=== PATIENT | female | born 1955 | race Two or more races ===

== ENCOUNTER → 2016-05-12 | Outpatient (CLI) | payer OTHER ==
--- NOTE | ~2016-05-12 | MY11 ---
[facility] A Service of [facility] RADIOLOGY TEXT RESULTS PATIENT: KASHIF BECERRA LOCATION: [facility] : 59 UNIT #: [id number] AGE: [address]: KYE VASQUEZ APRN SEX: F ORDER DR: [id number] [facility] [address] [place] [place], [place] [address] [id number] O MR#: [id number] Acc #: [id number] NAME: KASHIF BECERRA : 1955 SEX: F STUDY DATE/TIME: 05/12/2016 13:36 UNIT: [facility] ROOM: STUDY DESCRIPTION: MY Mammogram Screening Dig Piotr Attending Physician: Alberto Vasquez M.D. Referring Physician: Alberto Vasquez M.D. Ordering Physician: Alberto Vasquez M.D. Primary Care Physician: Ronnie Perdue M.D. MEDICAL IMAGING REPORT This report is preliminary unless electronic signature is present EXAM Bilateral digital screening mammogram with CAD. COMPARISON STUDIES None; baseline exam. HISTORY Breast cancer screening. A 61-year-old asymptomatic female. No personal or family history of breast cancer. FINDINGS There are scattered fibroglandular densities. There are bilateral sternalis muscles, a normal anatomic variant. There are no suspicious findings in either breast. IMPRESSION No mammographic evidence of malignancy. Continued annual screening mammography and clinical breast exam are recommended. Patients over the age of 40 are entered into a reminder system with target due date for the next mammogram. A result letter will also be sent to the patient. BIRADS: 2 Benign finding. Dictated by... Eros Miller M.D. THIS IS AN ELECTRONICALLY VERIFIED REPORT Eros Miller M.D. at 05/14/2016 7:11 PM [facility] A Service of [facility] RADIOLOGY TEXT RESULTS PATIENT: KASHIF BECERRA LOCATION: [facility] : 59 UNIT #: [id number] AGE: [address]: KYE VASQUEZ APRN SEX: F ORDER DR: Stella TD: 05/13/2016 09:45 JOB #: [id number] MEDICAL IMAGING REPORT COPY
== END | disposition home or self-care (01) ==
LOC: CWCC 13:12
DX: Z12.31 Encounter for screening mammogram for malignant neoplasm of breast (principal)
CPT/HCPCS: G0202